=== PATIENT | male | born 1990 | race Caucasian/White ===

== ENCOUNTER → 2016-08-01 | Outpatient (CLI) | payer BC | LOC: BHSO 15:37 | DX: F41.1 Generalized anxiety disorder (principal) ==

== ENCOUNTER → 2016-09-06 | Outpatient (CLI) | payer BC | LOC: BHSO 15:43 | DX: F33.42 Major depressive disorder, recurrent, in full remission (principal) ==

== ENCOUNTER → 2016-12-21 | Outpatient (CLI) | payer BC | LOC: BHSO 15:41 | DX: F90.0 Attention-deficit hyperactivity disorder, predominantly inattentive type (principal) ==

== ENCOUNTER → 2017-02-17 | Outpatient (CLI) | payer BC | LOC: BHSO 15:40 | DX: F90.0 Attention-deficit hyperactivity disorder, predominantly inattentive type (principal) ==

== ENCOUNTER → 2017-03-22 | Outpatient (CLI) | payer BC | LOC: BHSO 15:22 | DX: F90.0 Attention-deficit hyperactivity disorder, predominantly inattentive type (principal) ==

== ENCOUNTER → 2017-06-20 | Outpatient (CLI) | payer BC | LOC: BHSO 15:40 | DX: F90.0 Attention-deficit hyperactivity disorder, predominantly inattentive type (principal) ==

== ENCOUNTER → 2017-12-19 | Outpatient (CLI) | payer BC | LOC: BHSO 15:40 | DX: F90.0 Attention-deficit hyperactivity disorder, predominantly inattentive type (principal) | CPT/HCPCS: G0463 ==

== ENCOUNTER → 2018-11-27 | Outpatient (CLI) | payer BC | LOC: BHSO 15:40 | DX: F90.0 Attention-deficit hyperactivity disorder, predominantly inattentive type (principal) | CPT/HCPCS: G0463 ==

== ENCOUNTER → 2019-05-28 | Outpatient (CLI) | payer BC | LOC: BHSO 15:39 | DX: F90.0 Attention-deficit hyperactivity disorder, predominantly inattentive type (principal) | CPT/HCPCS: G0463 ==

== ENCOUNTER → 2019-07-30 | Outpatient (CLI) | payer BC | LOC: BHSO 15:41 | DX: F41.1 Generalized anxiety disorder (principal) | CPT/HCPCS: G0463 ==

== ENCOUNTER → 2020-04-30 | Outpatient (CLI) | payer BC | LOC: BHSO 15:36 | DX: F90.0 Attention-deficit hyperactivity disorder, predominantly inattentive type (principal) | CPT/HCPCS: G0463 ==